=== PATIENT | female | born 1995 | race Caucasian/White ===

== ENCOUNTER 2023-11-21 11:23 | Emergency (ER) | payer SELFPAY ==
[~2023-11-21] VITALS: Ht 160 cm; Wt 68.2 kg
[~2023-11-21 11:23] MED LIST: KURVELO 30 MCG-1 TAB PO; PROZAC 20MG20 MG PO
[2023-11-21 11:39] VITALS: BP 117/79; TEMP 98.1
[2023-11-21 14:04] VITALS: PULSE 98
== END 2023-11-21 14:04 | disposition home or self-care (01) ==
LOC: COL.ER 11:23
DX: M79.662 Pain in left lower leg (principal)